=== PATIENT | male | born 1945 | race Caucasian/White ===

== ENCOUNTER → 2017-02-24 | Outpatient (CLI) | payer MEDICARE ==
--- NOTE | 2017-02-25 13:36 | CT ---
EXAM DESCRIPTION: Abdoment/Pelvis w/o Contrast CLINICAL HISTORY: RUQ PAIN COMPARISON: May 07, 2014 images without report TECHNIQUE: Noncontrast transaxial CT images of the abdomen and pelvis are obtained using renal stone imaging protocol. This exam was performed according to our departmental dose-optimization program, which includes automated exposure control, adjustment of the mA and/or kV according to patient size and/or use of iterative reconstruction technique . FINDINGS: Liver is enlarged measuring at least 18.6 cm. Heterogeneous decreased attenuation of the liver compared to the spleen is again seen. The visualized lung bases show increased AP diameter of the chest. Calcified pulmonary nodules in the left lower lobe just old granulomatous disease. Given the limitations of a noncontrast exam the spleen, pancreas, adrenal glands, and gallbladder are unremarkable. There is questionable fat stranding in the mesentery of the jenelle hepatis on images 25 through 32 above the level of the head of the pancreas and main portal vein. There are calcifications of the liver and spleen. Moderate atherosclerotic disease is seen. No significant nephrolithiasis or ureteral obstruction is seen. Urinary bladder is unremarkable. Prostate is unremarkable. Appendix is unremarkable. Stomach is contracted and not well evaluated. No small bowel obstruction is seen. Colon is unremarkable. No significant diverticular disease is appreciated. Osseous structures show no aggressive bony lesions. Moderate to severe degenerative changes of the spine are seen. IMPRESSION: Hepatomegaly with diffuse fatty infiltration of the liver is seen. Subtle fat stranding in the jenelle hepatis region above the level of the head of the pancreas could represent early acute pancreatitis or biliary inflammation. Consider correlation with serum amylase and lipase. Ultrasound of the right upper quadrant of the abdomen may be useful to exclude noncalcified cholelithiasis or cholecystitis. Electronically signed by: Oj Resendiz MD 02/25/2017 1:34 PM CDT
== END ==
LOC: NM 09:29
PROVIDERS: ATTEND General Practice
DX: K81.9 Cholecystitis, unspecified (principal); R10.11 Right upper quadrant pain; K76.0 Fatty (change of) liver, not elsewhere classified

== ENCOUNTER → 2017-03-24 | Outpatient (CLI) | payer MEDICARE ==
--- NOTE | 2017-03-26 08:51 | NM ---
PROCEDURE: Hepatobiliary w/CCK Clinical History: Cholecystitis Indication: Same as above Comparison: There are no comparable prior examinations available at present. Technique: 8.0 Millicuries of technetium Disofenin was given intravenously and the patient was imaged for the subsequent 60 minutes after radiopharmaceutical injection. At the end of 60 minutes of initial scanning, the patient was given a fatty meal challenge Findings: The liver shows homogenous tracer uptake. There is no intrahepatic biliary dilatation. Activity seen in the gallbladder, common duct and the small bowel loops during the initial phase scanning. Subsequently the patient was given a fatty meal challenge There is no documentation of any subjective symptoms experienced by the patient following fatty meal challenge The gallbladder ejection fraction is 12.7 percent. Impression: 1. There is no scintigraphic evidence of acute cholecystitis. 2. The gallbladder ejection fraction is suboptimal at 12.7%, suggestive of gallbladder dyskinesia, most likely resulting from chronic cholecystitis 3.There is no documentation of any subjective symptoms experienced by the patient following fatty meal challenge. Electronically signed by: Carl Brown MD 03/26/2017 8:49 AM CDT Workstation: [id number]
== END ==
LOC: NM 09:05
PROVIDERS: ATTEND General Practice
DX: K81.9 Cholecystitis, unspecified (principal)
CPT/HCPCS: 78227; A9537